=== PATIENT | female | born 1945 | race Caucasian/White ===

== ENCOUNTER → 2021-09-30 | Outpatient (CLI) | payer OTHER | LOC: KOH-I 14:41 | DX: Z01.818 Encounter for other preprocedural examination (principal); M51.36 Other intervertebral disc degeneration, lumbar region; M48.061 Spinal stenosis, lumbar region without neurogenic claudication; M43.16 Spondylolisthesis, lumbar region | CPT/HCPCS: 72131 ==

== ENCOUNTER → 2021-11-01 | Outpatient (CLI) | payer OTHER ==
[~2021-11-01] MED LIST: AMBIEN10 MG PO; AMLODIPINE BESYL5 MG PO; ATENOLOL25 MG PO; BIOTIN PLUS KE1 EACH PO; HUMULIN R100 UNIT/1 SQ; LANTUS SOL100 UNIT/1 SQ; LO-DOSE ASPIRIN81 MG PO; LOSARTAN POTASS25 MG PO; PRAVASTATIN SOD10 MG PO; PRESERVISION A1 EAC2 PO; RABEPRAZOLE SOD20 MG PO; VITAMIN D3125 MC1 PO; [UNRECOGNIZED DRUG - OTHER] TOP
== END ==
LOC: LAB 09:09
DX: Z01.812 Encounter for preprocedural laboratory examination (principal); M47.26 Other spondylosis with radiculopathy, lumbar region; M48.061 Spinal stenosis, lumbar region without neurogenic claudication
CPT/HCPCS: 86850; 86920

== ENCOUNTER 2021-11-02 05:01 | Inpatient (IN) | payer OTHER ==
[~2021-11-02] VITALS: Ht 170.2 cm; Wt 64.0 kg
[~2021-11-02 05:01] MED LIST changes: -BIOTIN PLUS KE1 EACH PO; -[UNRECOGNIZED DRUG - OTHER] TOP
[2021-11-02] MEDS ORDERED: BIOTIN PLUS KE1 EACH PO (06:23)
[2021-11-02 16:49] LABS: HEMOGLOBIN 10.6 gm/dl (12.3-15.3); RED BLOOD COUNT 3.23 M/UL (4.00-5.10); WHITE BLOOD COUNT 13.7 K/UL (4.5-11.0)
[2021-11-03 05:48] LABS: WHITE BLOOD COUNT 14.4 K/UL (4.5-11.0)
[2021-11-03 05:52] LABS: HEMOGLOBIN 8.5 gm/dl (12.3-15.3); RED BLOOD COUNT 2.69 M/UL (4.00-5.10)
[2021-11-03] MEDS ORDERED: [UNRECOGNIZED DRUG - OTHER] TOP (10:07)
[2021-11-03 16:41] LABS: HEMOGLOBIN 10.3 gm/dl (12.3-15.3)
[2021-11-04 07:58] LABS: HEMOGLOBIN 8.6 gm/dl (12.3-15.3); RED BLOOD COUNT 2.75 M/UL (4.00-5.10); WHITE BLOOD COUNT 12.2 K/UL (4.5-11.0)
[2021-11-04 08:13] LABS: BUN/CREATININE RATIO 20 (0-10)
[2021-11-05 04:30] LABS: HEMOGLOBIN 8.8 gm/dl (12.3-15.3); RED BLOOD COUNT 2.74 M/UL (4.00-5.10); WHITE BLOOD COUNT 9.8 K/UL (4.5-11.0)
[2021-11-06 03:28] LABS: HEMOGLOBIN 8.5 gm/dl (12.3-15.3); RED BLOOD COUNT 2.6 M/UL (4.00-5.10); WHITE BLOOD COUNT 9.5 K/UL (4.5-11.0)
[2021-11-07 03:17] LABS: HEMOGLOBIN 8.3 gm/dl (12.3-15.3); RED BLOOD COUNT 2.65 M/UL (4.00-5.10); WHITE BLOOD COUNT 9.3 K/UL (4.5-11.0)
[2021-11-08 10:43] LABS: HEMOGLOBIN 8.6 gm/dl (12.3-15.3); RED BLOOD COUNT 2.73 M/UL (4.00-5.10); WHITE BLOOD COUNT 7.3 K/UL (4.5-11.0)
[2021-11-09 04:04] LABS: HEMOGLOBIN 8.4 gm/dl (12.3-15.3); RED BLOOD COUNT 2.64 M/UL (4.00-5.10); WHITE BLOOD COUNT 8.3 K/UL (4.5-11.0)
[2021-11-10 08:34] LABS: HEMOGLOBIN 9.2 gm/dl (12.3-15.3); RED BLOOD COUNT 2.8 M/UL (4.00-5.10); WHITE BLOOD COUNT 8.7 K/UL (4.5-11.0)
[2021-11-10] MEDS ORDERED: AMOXICILLIN500 MG PO (11:02)
== END 2021-11-10 13:44 | disposition home or self-care (01) | DRG 454 ==
LOC: OR 05:01 → CCU 18:39 → PROG CARE 11-03 13:58
PROVIDERS: Internal Medicine; ADMIT Orthopaedic Surgery
PROC: 0SB40ZZ Excision of Lumbosacral Disc, Open Approach (ICD-10-PCS; 2021-11-02)
PROC: 01NB0ZZ Release Lumbar Nerve, Open Approach (ICD-10-PCS; 2021-11-02)
PROC: 01NR0ZZ Release Sacral Nerve, Open Approach (ICD-10-PCS; 2021-11-02)
PROC: 4A11X4G Monitoring of Peripheral Nervous Electrical Activity, Intraoperative, External Approach (ICD-10-PCS; 2021-11-02)
PROC: 30233N1 Transfusion of Nonautologous Red Blood Cells into Peripheral Vein, Percutaneous Approach (ICD-10-PCS; 2021-11-02)
PROC: 0SG30A0 Fusion of Lumbosacral Joint with Interbody Fusion Device, Anterior Approach, Anterior Column, Open Approach (ICD-10-PCS; principal; 2021-11-02 07:30)
PROC: 0SG1071 Fusion of 2 or more Lumbar Vertebral Joints with Autologous Tissue Substitute, Posterior Approach, Posterior Column, Open Approach (ICD-10-PCS; 2021-11-02 07:30)
PROC: 0SG00A0 Fusion of Lumbar Vertebral Joint with Interbody Fusion Device, Anterior Approach, Anterior Column, Open Approach (ICD-10-PCS; 2021-11-02 07:30)
PROC: 0SG3071 Fusion of Lumbosacral Joint with Autologous Tissue Substitute, Posterior Approach, Posterior Column, Open Approach (ICD-10-PCS; 2021-11-02 07:30)
DX: M48.061 Spinal stenosis, lumbar region without neurogenic claudication (principal); D62 Acute posthemorrhagic anemia; N17.9 Acute kidney failure, unspecified; E87.1 Hypo-osmolality and hyponatremia; Z20.822 Contact with and (suspected) exposure to COVID-19; M51.16 Intervertebral disc disorders with radiculopathy, lumbar region; M41.86 Other forms of scoliosis, lumbar region; J01.90 Acute sinusitis, unspecified; M43.06 Spondylolysis, lumbar region; E86.0 Dehydration; W18.30XA Fall on same level, unspecified, initial encounter; E87.5 Hyperkalemia; E03.9 Hypothyroidism, unspecified; K59.00 Constipation, unspecified; I12.9 Hypertensive chronic kidney disease with stage 1 through stage 4 chronic kidney disease, or unspecified chronic kidney disease; N18.30 Chronic kidney disease, stage 3 unspecified; E78.5 Hyperlipidemia, unspecified; K31.7 Polyp of stomach and duodenum; G89.29 Other chronic pain; M81.8 Other osteoporosis without current pathological fracture; E11.22 Type 2 diabetes mellitus with diabetic chronic kidney disease; G47.33 Obstructive sleep apnea (adult) (pediatric); E11.9 Type 2 diabetes mellitus without complications; Z79.82 Long term (current) use of aspirin; Z79.4 Long term (current) use of insulin; Z98.42 Cataract extraction status, left eye; Z98.41 Cataract extraction status, right eye; Z90.710 Acquired absence of both cervix and uterus; Z91.81 History of falling; Y93.9 Activity, unspecified; Z88.6 Allergy status to analgesic agent
CPT/HCPCS: 36415; 36600; 72100; 72110; 72192; 73502; 76000; 80048; 80053; 82803; 82962; 83735; 85014; 85018; 85025; 85027; 87086; 93971; 94660; 97116; 97116-GP-CQ; 97161; 97166; 97530; 97535; C1713; C1762; J0690; J1040; J1170; J1644; J2001; J2370; J2405; J2550; J2704; J3010; J3260; J3370; J3475; J7030; J7040; J7120; P9016

== ENCOUNTER 2021-12-02 21:36 | Emergency (ER) | payer OTHER ==
[~2021-12-02 21:36] MED LIST changes: +AMOXICILLIN500 MG PO; +BIOTIN PLUS KE1 EACH PO; +[UNRECOGNIZED DRUG - OTHER] TOP
[2021-12-02 22:48] LABS: HEMOGLOBIN 10.3 gm/dl (12.3-15.3); RED BLOOD COUNT 3.35 M/UL (4.00-5.10); WHITE BLOOD COUNT 9.5 K/UL (4.5-11.0)
[2021-12-02 23:05] LABS: BUN/CREATININE RATIO 21 (0-10)
== END 2021-12-03 03:28 | disposition home or self-care (01) ==
LOC: ER1 21:36
PROVIDERS: Physician Assistant
DX: M79.605 Pain in left leg (principal); M25.552 Pain in left hip; R79.1 Abnormal coagulation profile; I10 Essential (primary) hypertension; Z90.710 Acquired absence of both cervix and uterus; Z88.8 Allergy status to other drugs, medicaments and biological substances
CPT/HCPCS: 72170; 80048; 85025; 85379; 96372; 99283; J1650

== ENCOUNTER → 2021-12-03 | Outpatient (CLI) | payer OTHER | LOC: US 14:14 | DX: M79.605 Pain in left leg (principal); R79.89 Other specified abnormal findings of blood chemistry | CPT/HCPCS: 93971 ==